=== PATIENT | male | born 1960 | race Two or more races ===

== ENCOUNTER 2025-06-14 19:40 | Emergency (ER) | payer OTHER, SELFPAY ==
[2025-06-14 19:57] VITALS: BP 96/56; PULSE 62; RESP 18; TEMP 36.4; O2SAT 97; BMI 21.4
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
[2025-06-14 23:03] VITALS: BP 113/66; PULSE 60; RESP 20; TEMP 36.2; O2SAT 99
[2025-06-14] MEDS: Diphth,Pertus(ACell),Tet Adult 0.5 ML SYRINGE IM (23:06)
[2025-06-14] MEDS: Lidocaine HCl 1 % 20 ML VIAL 5 ML INFILTRATI (23:10)
[2025-06-14 23:21] VITALS: BP 113/66; PULSE 60; RESP 20; TEMP 36.2; O2SAT 99
== END 2025-06-15 | disposition home or self-care (01) ==
PROVIDERS: Emergency Provider Emergency Medicine Emergency Medical Services
DX: S01.511A Laceration without foreign body of lip, initial encounter (principal); V28.09XA Other motorcycle driver injured in noncollision transport accident in nontraffic accident, initial encounter; Y93.89 Activity, other specified; Y92.017 Garden or yard in single-family (private) house as the place of occurrence of the external cause; Y99.9 Unspecified external cause status; Z23 Encounter for immunization
CPT/HCPCS: 12011; 90471; 90715; 99283; 99284; J2003